=== PATIENT | male | born 1970 | race Caucasian/White ===

== ENCOUNTER 2019-02-06 10:52 | Emergency (ER) | payer MEDICARE, SELFPAY ==
[2019-02-06 10:53] VITALS: BP 133/88; PULSE 75; RESP 17; TEMP 36.5; O2SAT 94; BMI 34.1
--- NOTE | 2019-02-06 11:43 | CT_ITS ---
STUDY: CT ABDOMEN AND PELVIS WITH CONTRAST REASON FOR EXAM: Male, 48 years old. Abdominal pain. Diarrhea. RADIATION DOSAGE (If Supplied By Facility): CTDIvol = ( 17.08 ) mGy, DLP = ( 1406.48 ) mGycm TECHNIQUE: Transaxial images were obtained from the dome of the diaphragm to the symphysis pubis without oral contrast. 100 IV Isovue 300 was administered. Sagittal and coronal images were reconstructed. Individualized dose optimization techniques were used for this CT. COMPARISON: None. FINDINGS: Mild degree of increased markings at the lung bases. This may represent either bibasilar linear atelectasis and/or scarring. The visualized portions of the heart are within normal limits. There is decreased attenuation of the liver consistent with steatosis. Normal gallbladder and extrahepatic biliary system. Normal spleen. Normal pancreas. Normal bilateral adrenal glands. Normal right kidney. Normal left kidney. Normal visualized stomach. Normal small intestine. There are scattered colonic diverticula consistent with diverticulosis. The appendix is visualized and appears normal. Normal abdominal aorta. Normal inferior vena cava. Normal retroperitoneum. Normal urinary bladder. There is a small umbilical hernia containing fat. Mild degree of loss of right superior endplates of the T10, T11 and T12 vertebrae. Disc space narrowing at the L5-S1 level. CT/Abdomen/Pelvis W IV Cont ONLY IMPRESSION: Scattered sigmoid diverticula. Fatty infiltration of the liver. Electronically Signed: Srini Villela, at 12:51 EDT , Service support ,
[2019-02-06 12:03] LABS: Absolute Lymphocyte Count 2.47 X10^3/uL (0.83-4.51); Absolute Neutrophil Count 3.5 X10^3/uL (2.0-7.7); Basophil# 0.04 X10^3/uL; Basophil% 0.6 % (0-1); Eosinophil# 0.21 X10^3/uL; Eosinophils% 3.1 % (0-5); Hematocrit 45.1 % (40-54); Hemoglobin 14.9 g/dL (13.0-16.5); Lymphocyte # 2.47 X10^3/ul (4.0); Lymphocyte % 36.3 % (19-41); Mean Corpuscular Volume 78.7 fL (80-94); Mean Platelet Vol. 9.8 fl (6.2-12.0); Monocyte# 0.51 X10^3/uL; Monocyte% 7.5 % (0-10); NRBC Flagged by Analyzer 0 % (0-5); Neutrophil # 3.54 X10^3/uL (2.7-7.7); Neutrophil % 52.1 % (47-70); Platelet Count 185 K/mm3 (150-450); RBC Distribution Width SD 42.5 fl (35.1-43.9); Red Blood Count 5.73 M/mm3 (4.6-6.2); White Blood Count 6.8 K/mm3 (4.4-11.0)
[2019-02-06] MEDS: Ondansetron 4 MG/2 ML Vial IV (12:05)
[2019-02-06] MEDS: 0.9% Normal Saline 1,000 ML 1000 ML IV (12:06)
[2019-02-06 12:15] LABS: AST(SGOT) 15 U/L (15-37); Alanine Aminotransfer ALT/SGPT 27 U/L (16-61); Albumin, Serum 3.8 g/dL (3.2-5.0); Alkaline Phosphatase 118 U/L (45-117); Anion Gap 3 (5-15); BUN 14 mg/dL (7-18); BUN/Creat Ratio 15.6 RATIO (10-20); Bilirubin, Direct 0.07 mg/dL (0.00-0.30); Calcium,Total 8.8 mg/dL (8.5-10.1); Chloride 106 mmol/L (98-107); EST Glomerular Filtration Rate 95 mL/min (>60); Est Glom Filt Rate - Afr Amer 115 mL/min (>60); Estimated Creatinine Clearance 107.78 ml/min; Globulin 3.4 g/dL (2.2-4.2); Glucose 90 mg/dL (74-106); Lipase 228 U/L (73-393); Potassium 4.6 mmol/L (3.5-5.1); Protein, Total 7.2 g/dL (6.4-8.2); Sodium Level 139 mmol/L (136-145)
[2019-02-06] MEDS: 0.9% Normal Saline 1,000 ML 125 ML IV (12:51)
[2019-02-06 13:31] LABS: Mucous, Urine 0 SEEN /hpf (<or=2+)
[2019-02-06 13:34] LABS: Color, Urine Yellow (Yellow); Glucose, Dipstick Normal (Normal); Ketone-Dipstick 5 mg/dl (Negative); Leukocyte Esterase-Dipstick 500 /ul (Negative); Nitrite-Dipstick Negative (Negative); Occult Blood-Urine 50 /ul (Negative); Protein-Dipstick 15 mg/dl (Negative); Urine Bilirubin Dipstick Negative (Negative); Urine Clarity Clear (Clear); Urine Urobilinogen Normal (Normal)
[2019-02-06 13:56] LABS: Bacteria RARE /hpf (None Seen); Red Blood Cells-Urine 0-5 SEEN /hpf (0-5); Squamous Epithelial Cells - UA 0-5 SEEN /hpf (0-5); White Blood Cells 0-5 SEEN /hpf (0-5)
--- NOTE | 2019-02-06 13:59 | ED.DCSUM_ITS ---
- ER Visit Summary Date of Service: 02/06/19 Chief Complaint: Diarrhea History of Present Illness: The patient is a 48 M who presents with 5 days of intermittent epigastric cramping as well as diarrhea. Describes the diarrhea is yellow and burning. He also notes the occasional blood in the stool. He denies any recent travel bad food exposures or exposure to farm animals. He states is been very nauseated has not been able to keep much fluids down. He started to feel weak and dehydrated. He has a history of seizure disorder and somatoform disorder. Physical Examination: Afebrile vital signs stable Gen: Well-nourished well-developed Head: Normocephalic atraumatic Eyes: Perrl EOMI ENT: TMs clear no rhinorrhea moist mucous membranes Neck: Supple no lymphadenopathy no JVD nontender CVS: Regular rate rhythm no murmurs normal S1-S2 Respiratory: No distress clear to auscultation bilaterally chest nontender Abdomen: Soft nontender nondistended normal bowel sounds no masses Back: Nontender Extremity: Nontender no edema Skin: Normal color no rash Neuro: alert orientated ?3 CN II-XII intact normal strength sensation Psych: Normal affect normal mood Test Results: CBC CMP is normal. Urinalysis normal. He is unable to produce a stool specimen. CT of the pelvis was negative. Emergency Department Course and Treatment: Patient received IV fluids and Zofran. He does feel better after IV hydration. He is appropriate for discharge and write for Bentyl in addition to Zofran Impression: 1. Gastroenteritis This note was generated with [employer] dictation software. It may contain incorrect words, spelling, and punctuation that were not noted in review of the chart prior to signing ED Disposition - Plan for ED Patient: Disposition: Home or Assisted Living Instructions: GASTROENTERITIS, Viral (4y-Adult) Prescriptions: Dicyclomine HCl [Bentyl] 20 mg PO TIDAC #20 cap Prescription Printed Ondansetron [Zofran Odt] 4 mg PO Q6H PRN PRN #10 tab PRN Reason: Nausea Prescription Printed Referrals: Watson Chapman Chi, MD [Primary Care Provider] - As Needed
[2019-02-06 14:16] VITALS: RESP 18
== END 2019-02-06 14:17 | disposition home or self-care (01) ==
PROVIDERS: Emergency Provider Emergency Medicine; Family Provider Family Medicine Geriatric Medicine; PCP Family Medicine Geriatric Medicine
DX: K52.9 Noninfective gastroenteritis and colitis, unspecified (principal); G40.909 Epilepsy, unspecified, not intractable, without status epilepticus; Z79.899 Other long term (current) drug therapy
CPT/HCPCS: 74177; 80048; 80076; 81001; 83690; 85025; 96361; 96374; 99283; J7030; Q9967; A4216; J2405

== ENCOUNTER → 2019-02-11 | Outpatient (CLI) | payer MEDICARE, SELFPAY ==
[2019-02-06 10:53] VITALS: BMI 34.1
[2019-02-11 16:34] LABS: Absolute Lymphocyte Count 2.47 X10^3/uL (0.83-4.51); Absolute Neutrophil Count 3.2 X10^3/uL (2.0-7.7); Basophil# 0.04 X10^3/uL; Basophil% 0.6 % (0-1); Eosinophil# 0.15 X10^3/uL; Eosinophils% 2.4 % (0-5); Hematocrit 42.6 % (40-54); Hemoglobin 14.2 g/dL (13.0-16.5); Lymphocyte # 2.47 X10^3/ul (4.0); Lymphocyte % 39.8 % (19-41); Mean Corp Hgb Conc 33.3 g/dL (32-36); Mean Corpuscular Hgb 25.6 pg (27.0-32.0); Mean Corpuscular Volume 76.8 fL (80-94); Mean Platelet Vol. 9.9 fl (6.2-12.0); Monocyte# 0.33 X10^3/uL; Monocyte% 5.3 % (0-10); NRBC Flagged by Analyzer 0 % (0-5); Neutrophil # 3.17 X10^3/uL (2.7-7.7); Neutrophil % 51.3 % (47-70); Platelet Count 160 K/mm3 (150-450); RBC Distribution Width CV 14.8 % (11.6-14.6); RBC Distribution Width SD 40.7 fl (35.1-43.9); Red Blood Count 5.55 M/mm3 (4.6-6.2); White Blood Count 6.2 K/mm3 (4.4-11.0)
[2019-02-11 17:03] LABS: ALB/GLOB Ratio 1.1 RATIO (0.9-2.4); AST(SGOT) 15 U/L (15-37); Alanine Aminotransfer ALT/SGPT 27 U/L (16-61); Albumin, Serum 3.6 g/dL (3.2-5.0); Alkaline Phosphatase 103 U/L (45-117); Anion Gap 9 (5-15); BUN 15 mg/dL (7-18); BUN/Creat Ratio 16.3 RATIO (10-20); Calcium,Total 8.6 mg/dL (8.5-10.1); Chloride 107 mmol/L (98-107); Creatinine, Serum 0.92 mg/dL (0.70-1.30); EST Glomerular Filtration Rate 93 mL/min (>60); Est Glom Filt Rate - Afr Amer 112 mL/min (>60); Globulin 3.3 g/dL (2.2-4.2); Glucose 108 mg/dL (74-106); Potassium 4.1 mmol/L (3.5-5.1); Protein, Total 6.9 g/dL (6.4-8.2); Sodium Level 140 mmol/L (136-145); Thyroid Stim Hormone (TSH) 1.61 uIU/mL (0.358-3.74)
== END | disposition home or self-care (01) ==
LOC: POLAB3 14:24
PROVIDERS: Family Provider Family Medicine Geriatric Medicine; PCP Family Medicine Geriatric Medicine; Visit Provider Family Medicine Geriatric Medicine
DX: R53.83 Other fatigue (principal)
CPT/HCPCS: 36415; 80053; 84443; 85025

== ENCOUNTER 2020-07-28 15:50 | Emergency (ER) | payer MEDICARE, SELFPAY ==
[2020-07-28 15:51] VITALS: BP 163/97; PULSE 96; RESP 17; TEMP 36.7; O2SAT 92; BMI 33.0
--- NOTE | 2020-07-28 16:26 | ED.VISSUMM ---
- ER Visit Summary Date of Service: 07/28/20 Chief Complaint: Left chest pain History of Present Illness: The patient is a 49 M who presents with left chest wall pain that began after a fall 3 days ago. Patient states she fell down some steps. Patient denies any loss of consciousness at that time. Patient is unsure if he hit his head. Patient states that today he was doing some lifting when he felt pain in the left side of his chest where he fell. Patient states he did feel a pop. Patient states the pain is better when he remains in certain positions. Patient states the pain is worse whenever he takes a deep breath or moves. Patient describes the pain as sharp. Patient denies any shortness of breath other than the pain from taking a deep breath. Patient denies any nausea or vomiting. Physical Examination: Vital signs are stable. Patient is afebrile. Patient is in no acute distress. Neck is supple. Trachea is midline. There is no JVD. Heart was regular rate and rhythm. Lungs are clear and equal bilaterally. There is adequate respiratory effort. Abdomen is soft. Bowel sounds are normal. There is no tenderness. Cranial nerves II through XII are intact. There are no focal motor or sensory deficits noted. There is tenderness and ecchymosis over the left lateral and posterior ribs over the third fourth and fifth rib area. There is no bony crepitance or step-off. There is no subcutaneous emphysema noted. Test Results: X-rays of the left ribs were obtained. There are 5 views. On my interpretation, there is no acute fracture. There is no pneumothorax. There is no acute cardiopulmonary process. Radiologist also interpreted the x-rays and agrees. Emergency Department Course and Treatment: Patient was given a dose of [place] here. Patient was advised of his findings. Patient was given a prescription for a short course of [place]. Patient was instructed to take 10-15 deep breaths every hour while awake to prevent atelectasis and pneumonia. Patient was instructed to follow-up with his primary care physician in 5 to 7 days. Patient understood and was agreeable with the plan. All questions were answered. Disposition: Discharge home Impression: Left chest wall contusion This note was generated with [employer] dictation software. It may contain incorrect words, spelling, and punctuation that were not noted in review of the chart prior to signing ED Disposition - Plan for ED Patient: Disposition: Home or Assisted Living Diagnosis: Contusion of left chest wall Instructions: ED Chest Wall Contusion Prescriptions: Hydrocodone Bitart/Apap 5-325 [[place] 5MG-325MG] 1 tab PO Q6H PRN PRN 3 Days #10 tab PRN Reason: Pain Prescription Printed Referrals: Watson Chapman Chi, MD [Primary Care Provider] - 5-7 Days
[2020-07-28] MEDS: HYDROcodone Bitartrate/Apap 5/325 Tablet PO (16:29)
--- NOTE | 2020-07-28 16:35 | RAD_ITS ---
STUDY: X-RAY - UNILATERAL RIBS ( LEFT ) WITH CHEST REASON FOR EXAM: Male, 49 years old. Fall. TECHNIQUE - RIBS: view(s) of the ribs. TECHNIQUE - CHEST: Single PA view of the chest. COMPARISON: Chest, 08/07/2014. FINDINGS - RIBS: Normal visualized ribs without a demonstrated fracture. FINDINGS - CHEST: There is a limited inspiratory effort. There is no new mass or infiltrate in the lungs. There is no pneumothorax. There is no demonstrated pleural abnormality. Normal size heart. Normal mediastinum and jameson. Normal visualized pulmonary arteries. There is atherosclerotic calcification of the aortic arch with tortuosity. There are diffuse degenerative changes of the visualized thoracic spine. There are stable surgical changes on the left shoulder. There is no demonstrated abnormality of the visualized soft tissue structures of the upper abdomen. RAD/Ribs Uni Min 3V w/PA Chest IMPRESSION: RIBS: Normal x-ray examination of the ribs. CHEST: No acute cardiopulmonary disease or major interval change. Electronically Signed: Nomi Matias DO at 16:55 EST Tel [phone], Service support ,
[2020-07-28 17:22] VITALS: PULSE 87; RESP 18; O2SAT 98
== END 2020-07-28 17:22 | disposition home or self-care (01) ==
PROVIDERS: Emergency Provider Emergency Medicine; PCP Family Medicine Geriatric Medicine
DX: S20.212A Contusion of left front wall of thorax, initial encounter (principal); R56.9 Unspecified convulsions; Z79.899 Other long term (current) drug therapy; W10.9XXA Fall (on) (from) unspecified stairs and steps, initial encounter; Y93.89 Activity, other specified; Y92.89 Other specified places as the place of occurrence of the external cause; Y99.8 Other external cause status
CPT/HCPCS: 71101; 99283

== ENCOUNTER → 2020-08-03 11:07 | Outpatient (CLI) | payer MEDICARE, SELFPAY ==
[2020-07-28 15:51] VITALS: BMI 33.0
[2020-08-03 12:30] LABS: Absolute Lymphocyte Count 1.78 X10^3/uL (0.83-4.51); Absolute Neutrophil Count 3.8 X10^3/uL (2.0-7.7); Basophil# 0.04 X10^3/uL; Basophil% 0.6 % (0-1); Eosinophil# 0.11 X10^3/uL; Eosinophils% 1.7 % (0-5); Hematocrit 46.7 % (40-54); Hemoglobin 15.3 g/dL (13.0-16.5); Lymphocyte # 1.78 X10^3/ul (4.0); Lymphocyte % 28.3 % (19-41); Mean Corp Hgb Conc 32.8 g/dL (32-36); Mean Corpuscular Hgb 27.7 pg (27.0-32.0); Mean Corpuscular Volume 84.6 fL (80-94); Mean Platelet Vol. 9.6 fl (6.2-12.0); Monocyte# 0.42 X10^3/uL; Monocyte% 6.7 % (0-10); NRBC Flagged by Analyzer 0 % (0-5); Neutrophil # 3.84 X10^3/uL (2.7-7.7); Platelet Count 177 K/mm3 (150-450); RBC Distribution Width CV 12.9 % (11.6-14.6); RBC Distribution Width SD 39.8 fl (35.1-43.9); Red Blood Count 5.52 M/mm3 (4.6-6.2); White Blood Count 6.3 K/mm3 (4.4-11.0)
[2020-08-03 12:46] LABS: ALB/GLOB Ratio 1.2 RATIO (0.9-2.4); AST(SGOT) 10 U/L (15-37); Alanine Aminotransfer ALT/SGPT 30 U/L (16-61); Albumin, Serum 3.8 g/dL (3.2-5.0); Alkaline Phosphatase 118 U/L (45-117); Anion Gap 6 (5-15); BUN 19 mg/dL (7-18); BUN/Creat Ratio 20.9 RATIO (10-20); Calcium,Total 8.8 mg/dL (8.5-10.1); Chloride 107 mmol/L (98-107); Cholesterol 183 mg/dL (200); Creatinine, Serum 0.91 mg/dL (0.70-1.30); EST Glomerular Filtration Rate 93 mL/min (>60); Est Glom Filt Rate - Afr Amer 113 mL/min (>60); Globulin 3.3 g/dL (2.2-4.2); Glucose 95 mg/dL (74-106); High Density Lipoprotein 52 mg/dL; Potassium 4.4 mmol/L (3.5-5.1); Protein, Total 7.1 g/dL (6.4-8.2); Sodium Level 138 mmol/L (136-145); Thyroid Stim Hormone (TSH) 3.22 uIU/mL (0.358-3.74); Triglycerides 290 mg/dL; Very Low Density Lipoprotein 58 mg/dL (5-40)
== END ==
LOC: POLAB3 11:08
PROVIDERS: PCP Family Medicine Geriatric Medicine; Visit Provider Family Medicine Geriatric Medicine
DX: E78.5 Hyperlipidemia, unspecified (principal); I10 Essential (primary) hypertension
CPT/HCPCS: 36415; 80053; 80061; 84443; 85025

== ENCOUNTER → 2020-10-01 09:47 | Outpatient (CLI) | payer MEDICARE, SELFPAY ==
--- NOTE | 2020-10-01 09:50 | RAD_ITS ---
STUDY: X-RAY - LEFT KNEE REASON FOR EXAM: Left knee joint pain, no specific injury. TECHNIQUE: 4 view(s) of the knee. COMPARISON: Radiographs 01/13/2014. FINDINGS: Normal visualized distal femur. Normal visualized proximal tibia and fibula. Normal proximal tibiofibular articulation. There is moderate narrowing of the medial femorotibial compartment, mildly increased since the prior study. Normal lateral femorotibial compartment. Normal patellofemoral articulation. The soft tissue structures are unremarkable. RAD/Knee 4 or More Views IMPRESSION: Arthrosis of the medial femorotibial compartment. Electronically Signed: Lit Valencia MD at 11:08 EDT Tel , Service support ,
== END ==
LOC: RAD 09:49
PROVIDERS: PCP Family Medicine Geriatric Medicine; Referring Provider Family Medicine Geriatric Medicine; Visit Provider Family Medicine Geriatric Medicine
DX: M25.562 Pain in left knee (principal)
CPT/HCPCS: 73564

== ENCOUNTER → 2020-10-11 06:35 | Outpatient (CLI) | payer MEDICARE, SELFPAY ==
--- NOTE | 2020-10-11 06:50 | MRI_ITS ---
STUDY: MRI BRAIN WITHOUT CONTRAST REASON FOR EXAM: Male, 49 years old. L HEMIPARASIS TECHNIQUE: Standardized multiplanar fat and water weighted pulse sequences were obtained. COMPARISON: 09/12/2014 FINDINGS: Normal size of the ventricles and extra-axial spaces for the patient''s age. Normal white matter tracts of the supratentorial brain. There is no evidence for recent intracranial ischemia or other cause of cytotoxic edema on diffusion weighted imaging (DWI). Normal T2* images of the brain without demonstrated susceptibility artifact. There is no demonstrated hemosiderin stain. Normal bilateral basal ganglia. Normal thalami. There is no extra-axial fluid accumulation. Normal flow voids within the major intracranial circulation suggesting patency by spin echo criteria. Normal sella turcica, pituitary gland, infundibular stalk, optic chiasm and hypothalamus. Normal tectal plate and pineal gland. Normal midbrain, derrick and medulla. Normal cerebellum. Normal basal cisterns. Normal bilateral temporal bones. Normal bilateral internal auditory canals. No demonstrated orbital abnormality, within the constraints of a routine brain study. Normal visualized paranasal sinuses. Normal calvarium and skull base. Normal visualized soft tissue structures. Normal visualized upper cervical spine. MRI/Brain without Contrast IMPRESSION: Normal unenhanced MRI of the brain. Electronically Signed: Abilio Meyers MD at 11:57 EDT Tel , Service support ,
--- NOTE | 2020-10-11 06:51 | MRI_ITS ---
STUDY: MRI CERVICAL SPINE WITHOUT CONTRAST REASON FOR EXAM: Male, 49 years old. L HEMIPARASIS TECHNIQUE: Standardized fat and water weighted pulse sequences were obtained in the sagittal and axial planes. COMPARISON: None FINDINGS: Patient motion. Please see dedicated brain MRI. No abnormal cord signal. Symmetric vascular flow voids. Normal foramen magnum. Normal craniovertebral junction. Normal anterior atlantoaxial articulation. Normal odontoid process. Paraspinal muscle atrophy. No acute soft tissue abnormality. Multilevel mild facet joint arthrosis. No spondylolisthesis. C2-3: Normal endplates. Normal disc height, signal and morphology. Normal central canal and intervertebral neural foramina. C3-4: Mild endplate spondylosis and Schmorl''s node. Shallow disc bulge. Normal central canal. Moderate left neural foraminal narrowing. Normal right neural foramina. C4-5: Minimal endplate spondylosis. Shallow disc bulge. Normal central canal. Moderate bilateral neural foraminal narrowing. C5-6: Minimal endplate spondylosis. Shallow disc bulge. Normal central canal. Mild/moderate bilateral neural foraminal narrowing. C6-7: Mild endplate spondylosis. Disc/osteophyte complex. Mild central canal narrowing. Moderate/severe bilateral neural foraminal narrowing. C7-T1: Normal endplates. Normal disc height, signal and morphology. Normal central canal and intervertebral neural foramina. MRI/Spine Cervical (Routine) IMPRESSION: No abnormal cord signal Multilevel intervertebral disc disease with mild central canal narrowing at C6-7 Multilevel neural foraminal narrowing most severe at C3-4 through C6-7 Multilevel mild osseous degenerative features Electronically Signed: Alin Moreno DO at 9:34 EDT Tel , Service support ,
== END ==
PROVIDERS: PCP Family Medicine Geriatric Medicine; Referring Provider Family Medicine Geriatric Medicine; Visit Provider Family Medicine Geriatric Medicine
DX: G81.90 Hemiplegia, unspecified affecting unspecified side (principal); S06.9X0S Unspecified intracranial injury without loss of consciousness, sequela
CPT/HCPCS: 70551; 72141

== ENCOUNTER 2021-02-08 09:28 | Emergency (ER) | payer MEDICARE, SELFPAY ==
[2021-02-08 09:28] VITALS: BP 166/75; PULSE 75; RESP 16; TEMP 36.4; O2SAT 97; BMI 32.9
--- NOTE | 2021-02-08 10:01 | RAD_ITS ---
STUDY: X-RAY - LEFT KNEE REASON FOR EXAM: Male, 50 years old. Injury TECHNIQUE: 4 view(s) of the knee. COMPARISON: None. FINDINGS: Normal visualized distal femur. Normal visualized proximal tibia and fibula. Normal proximal tibiofibular articulation. Mild degree of joint space narrowing involving the medial compartment of the knee joint. Normal lateral femorotibial compartment. Normal patellofemoral articulation. The soft tissue structures are unremarkable. RAD/Knee 4 or More Views IMPRESSION: Mild degree of joint space narrowing involving the medial compartment of the knee joint. Electronically Signed: Srini Villela MD at 11:08 EDT , Service support ,
--- NOTE | 2021-02-08 10:02 | ED.VIS.LOWEX ---
HPI History of Present Illness Chief Complaint: Lower Extremity Injury Informant: patient Onset/Context/Timing Onset: Weeks Current Severity: Severe Maximum Severity: Severe Narrative Narrative: Patient present secondary to left knee pain. He states approximately 7 weeks ago he was helping a friend laying chelly. After working on his knees for several days he developed left knee pain. Been waxing and waning for the last 6 weeks. He was seen by his PCP yesterday who did a steroid injection. He states after this it did seem to be improved. Last evening he slipped and his knee twisted. He had now has increased pain with pain shooting down his leg. He denies back or hip pain. No prior knee surgeries. [facility] Medical History Hx of arterial ischemic stroke Seizure disorder Home Medications citalopram [Celexa] 20 mg PO QHS 01/13/14 [History Last Taken 08/08/15] phenytoin sodium extended 200 mg PO BREAKFAST #60 03/08/14 [Rx Last Taken 08/08/15] phenytoin sodium extended 300 mg PO QHS 03/26/14 [History Last Taken 08/07/15] divalproex [Depakote] 2,000 mg PO BID 05/05/14 [History Last Taken 08/08/15] cyanocobalamin (vitamin B-12) 500 mcg PO DAILY@0800 07/28/20 [History Last Taken Unknown] baclofen 10 mg PO QHS 02/08/21 [History Last Taken Unknown] hydrocodone-acetaminophen 1 tab PO Q6H PRN 3 Days #10 tab 02/08/21 [Rx Last Taken Unknown] naproxen 500 mg PO BID 02/08/21 [History Last Taken Unknown] pantoprazole 40 mg PO DAILY 02/08/21 [History Last Taken Unknown] prednisone 10 mg PO DAILY 02/08/21 [History Last Taken Unknown] Allergy/AdvReac Type Severity Reaction Status Date / Time diazepam [From Valium] Allergy Other Verified 02/08/21 09:31 Penicillins AdvReac Rash Verified 02/08/21 09:31 Surgical History Hx of cornea transplant Social History Smoking Status: Never smoker ROS ROS ED Constitutional Constitutional ED: Denies chills or fever(s) Eyes Eyes: Denies change in vision ENT ENT ED: Denies sore throat Cardiovascular Cardiovascular: Denies chest pain Respiratory/Chest Respiratory/Chest: Denies cough or dyspnea Gastrointestinal Gastrointestinal: Denies abdominal pain, diarrhea, nausea or vomiting Genitourinary Genitourinary ED: Denies dysuria Musculoskeletal Musculoskeletal: Reports arthralgias; Denies back pain Integumentary Denies rash Neurologic Neurologic: Denies headache(s), paresthesias or weakness Psychiatric Psychiatric: Denies anxiety or depression Allergic/Immunologic Allergic/Immunologic ED: Denies urticaria EXAM Physical Exam Const Vital Signs: 02/08/21 09:28 Temperature 97.6 F L Temperature Source Oral Pulse Rate 75 Respiratory Rate 16 Blood Pressure 166/75 H Blood Pressure Mean 105 Pulse Ox 97 Oxygen Delivery Method Room Air Positive well nourished and well developed General Appearance ED: well developed HEENT Reports normocephalic and head/scalp atraumatic Eyes PERRL and EOMs intact bilaterally Neck supple Chest Wall inspection of chest normal and palpation of chest normal Resp normal respiratory effort and clear to auscultation bilaterally Cardio regular rate and regular rhythm GI normal to inspection, nondistended, normoactive bowel sounds Palpation: soft Extremity normal to inspection Extremity Narrative: No obvious joint effusion. Tenderness along the medial aspect of the left knee. Ligaments tight on testing. Strong distal pulses. No calf tenderness or edema. Neuro oriented x3 Sensorium / Orientation: alert Psych mental status grossly normal Skin no rashes or lesions noted MDM MDM MDM Narrative Medical decision making narrative: Patient is given [place] for pain. Left knee x-rays obtained. Treatment and Re-Evaluation Comments:: Left knee x-ray per my interpretation reveals no evidence of acute fracture. Collin wrap will be applied. Patient was placed on crutches and may weight-bear as tolerated. Patient's went up to the PCPs office. They are awaiting insurance preauthorization to schedule an MRI. Patient be given prescription for [place] in addition to the prednisone and Naprosyn he was given yesterday. Discharge Plan Triage Chief Complaint: Lower Extremity Injury ED Provider: Suyapa John Dx/Rx/DC Orders Clinical Impression: Knee sprain Instructions: ED Knee Sprain Prescriptions: New hydrocodone-acetaminophen 5-325 mg tablet 1 tab PO Q6H PRN (Reason: pain) 3 Days Qty: 10 RF: 0 No Action citalopram [Celexa] 10 MG tablet 20 mg PO QHS RF: 0 phenytoin sodium extended 100 MG capsule 200 mg PO BREAKFAST Qty: 60 RF: 0 phenytoin sodium extended 100 MG capsule 300 mg PO QHS RF: 0 divalproex [Depakote] 500 MG tablet,delayed release (DR/EC) 2,000 mg PO BID RF: 0 cyanocobalamin (vitamin B-12) 500 MCG tablet 500 mcg PO DAILY@0800 RF: 0 prednisone 10 mg Tablets,Dose Pack 10 mg PO DAILY RF: 0 baclofen 10 mg Tablet 10 mg PO QHS RF: 0 pantoprazole 40 mg Tablet,Delayed Release (Dr/Ec) 40 mg PO DAILY RF: 0 naproxen 500 mg Tablet 500 mg PO BID RF: 0 Primary Care Provider: Watson Chapman Chi Referrals: Watson Chapman Chi, MD [Primary Care Provider] - 1 Week Disposition Disposition: Home, Self Care
[2021-02-08] MEDS: HYDROcodone Bitartrate/Apap 5/325 Tablet PO (10:05)
== END 2021-02-08 10:56 | disposition home or self-care (01) ==
PROVIDERS: Emergency Provider Emergency Medicine; PCP Family Medicine Geriatric Medicine
DX: S83.92XA Sprain of unspecified site of left knee, initial encounter (principal); Z86.73 Personal history of transient ischemic attack (TIA), and cerebral infarction without residual deficits; Z79.899 Other long term (current) drug therapy; Z79.52 Long term (current) use of systemic steroids; X58.XXXA Exposure to other specified factors, initial encounter
CPT/HCPCS: 73564; 99284

== ENCOUNTER → 2021-02-19 07:16 | Outpatient (CLI) | payer MEDICARE, SELFPAY ==
--- NOTE | 2021-02-19 07:32 | MRI_ITS ---
STUDY: MRI LEFT KNEE REASON FOR EXAM: Male, 50 years old. KNEE PAIN distal and medial to patella TECHNIQUE: Standardized fat and water weighted pulse sequences were obtained in all 3 orthogonal planes. COMPARISON: Left knee x-ray dated February 08, 2021 FINDINGS: A moderate size radial tear of the free edge of the body of the medial meniscus is present. There is diffuse thinning and signal abnormality throughout the posterior horn of the medial meniscus. A small horizontal undersurface tear is present in the middle one third aspect of the posterior horn of medial meniscus. The anterior horn is intact. There is diffuse, greater than 50% thickness articular cartilage loss of the medial femorotibial compartment. Normal medial femoral condyle and tibial plateau. Normal medial collateral ligamentous complex (MCL). Normal distal semimembranosus, gracilis and semitendinosus tendons. Normal lateral meniscus. There is diffuse, less than 50% thickness articular cartilage loss of the lateral femorotibial compartment. Normal lateral femoral condyle and tibial plateau. Normal proximal tibiofibular articulation. Normal lateral collateral (fibular) ligament. Normal popliteus tendon. Normal biceps femoris tendon. Normal anterior cruciate ligament (ACL). Normal posterior cruciate ligament (PCL). Normal congruent patellofemoral articulation. There is diffuse, greater than 50% thickness articular cartilage loss of the patellofemoral compartment. Normal medial and lateral patellar retinaculum. Normal quadriceps tendon. Normal patellar tendon. Normal Hoffa''s fat pad. A tiny joint effusion is present. Low signal fibrosis is seen in the anterior medial aspect of the subcutaneous tissue with a small focal capsular defect suggesting prior surgical intervention or direct trauma to this region. Mild anterior subcutaneous edema is present. MRI/Lower Ext Joint Only (Routine) IMPRESSION: 1. Moderate size radial tear of the medial meniscus 2. Small horizontal tear of the posterior horn of medial meniscus 3. A tiny joint effusion is present. Low signal fibrosis is seen in the anterior medial aspect of the subcutaneous tissue with a small focal capsular defect suggesting prior surgical intervention or direct trauma to this region. Electronically Signed: Matt Carmen MD at 23:17 EDT , Service support ,
== END ==
PROVIDERS: PCP Family Medicine; Referring Provider Family Medicine Geriatric Medicine; Visit Provider Family Medicine Geriatric Medicine
DX: M25.562 Pain in left knee (principal)
CPT/HCPCS: 73721

== ENCOUNTER → 2021-04-11 12:06 | Outpatient (CLI) | payer MEDICARE, SELFPAY ==
[2021-04-11 12:42] LABS: Absolute Lymphocyte Count 1.85 X10^3/uL (0.83-4.51); Absolute Neutrophil Count 2.9 X10^3/uL (2.0-7.7); Basophil# 0.03 X10^3/uL; Basophil% 0.6 % (0-1); Eosinophil# 0.07 X10^3/uL; Eosinophils% 1.3 % (0-5); Hematocrit 45.2 % (40-54); Lymphocyte # 1.85 X10^3/ul (0.83-4.51); Lymphocyte % 35.2 % (19-41); Mean Corp Hgb Conc 33.2 g/dL (32-36); Mean Corpuscular Hgb 29.5 pg (27.0-32.0); Mean Corpuscular Volume 88.8 fL (80-94); Mean Platelet Vol. 10.7 fl (6.2-12.0); Monocyte# 0.34 X10^3/uL; Monocyte% 6.5 % (0-10); NRBC Flagged by Analyzer 0 % (0-5); Neutrophil # 2.91 X10^3/uL (2.7-7.7); Neutrophil % 55.4 % (47-70); Platelet Count 174 K/mm3 (150-450); RBC Distribution Width CV 13.1 % (11.6-14.6); RBC Distribution Width SD 42.5 fl (35.1-43.9); Red Blood Count 5.09 M/mm3 (4.6-6.2); White Blood Count 5.3 K/mm3 (4.4-11.0)
[2021-04-11 13:05] LABS: AST(SGOT) 8 U/L (15-37); Alanine Aminotransfer ALT/SGPT 20 U/L (16-61); Albumin, Serum 3.3 g/dL (3.2-5.0); Alkaline Phosphatase 80 U/L (45-117); Anion Gap 7 (5-15); BUN 12 mg/dL (7-18); BUN/Creat Ratio 13.9 RATIO (10-20); Calcium,Total 8.5 mg/dL (8.5-10.1); Chloride 110 mmol/L (98-107); Cholesterol 163 mg/dL (200); Creatinine, Serum 0.86 mg/dL (0.70-1.30); EST Glomerular Filtration Rate 99 mL/min (>60); Est Glom Filt Rate - Afr Amer 119 mL/min (>60); Globulin 3.2 g/dL (2.2-4.2); Glucose 108 mg/dL (74-106); High Density Lipoprotein 43 mg/dL; Potassium 4.6 mmol/L (3.5-5.1); Protein, Total 6.5 g/dL (6.4-8.2); Sodium Level 142 mmol/L (136-145); Thyroid Stim Hormone (TSH) 1.93 uIU/mL (0.358-3.74); Triglycerides 246 mg/dL; Very Low Density Lipoprotein 49 mg/dL (5-40)
== END ==
LOC: POLAB3 12:07
PROVIDERS: PCP Family Medicine Geriatric Medicine; Visit Provider Family Medicine Geriatric Medicine
DX: E78.5 Hyperlipidemia, unspecified (principal); I10 Essential (primary) hypertension
CPT/HCPCS: 36415; 80053; 80061; 84443; 85025

== ENCOUNTER → 2021-05-09 10:34 | Outpatient (CLI) | payer MEDICARE, SELFPAY ==
[2021-05-09 12:46] LABS: Anion Gap 7 (5-15); BUN 13 mg/dL (7-18); BUN/Creat Ratio 15.1 RATIO (10-20); Calcium,Total 9.1 mg/dL (8.5-10.1); Chloride 104 mmol/L (98-107); Creatinine, Serum 0.86 mg/dL (0.70-1.30); EST Glomerular Filtration Rate 99 mL/min (>60); Est Glom Filt Rate - Afr Amer 119 mL/min (>60); Glucose 91 mg/dL (74-106); Potassium 4.9 mmol/L (3.5-5.1); Sodium Level 141 mmol/L (136-145)
[2021-05-09 12:47] LABS: Absolute Lymphocyte Count 2.43 X10^3/uL (0.83-4.51); Basophil# 0.03 X10^3/uL; Basophil% 0.5 % (0-1); Eosinophil# 0.18 X10^3/uL; Hematocrit 47.5 % (40-54); Hemoglobin 15.7 g/dL (13.0-16.5); Lymphocyte # 2.43 X10^3/ul (0.83-4.51); Lymphocyte % 40.1 % (19-41); Mean Corp Hgb Conc 33.1 g/dL (32-36); Mean Corpuscular Hgb 28.5 pg (27.0-32.0); Mean Corpuscular Volume 86.2 fL (80-94); Monocyte# 0.43 X10^3/uL; Monocyte% 7.1 % (0-10); NRBC Flagged by Analyzer 0 % (0-5); Neutrophil # 2.95 X10^3/uL (2.7-7.7); Neutrophil % 48.6 % (47-70); Platelet Count 184 K/mm3 (150-450); RBC Distribution Width CV 12.9 % (11.6-14.6); RBC Distribution Width SD 39.8 fl (35.1-43.9); Red Blood Count 5.51 M/mm3 (4.6-6.2); White Blood Count 6.1 K/mm3 (4.4-11.0)
[2021-05-09 12:50] LABS: Prothrombin Time (Protime)PT. 12.3 SECONDS (11.7-14.9)
== END ==
LOC: POLAB3 10:35
PROVIDERS: PCP Family Medicine Geriatric Medicine; Visit Provider Family Medicine Geriatric Medicine
DX: Z01.818 Encounter for other preprocedural examination (principal)
CPT/HCPCS: 36415; 80048; 85025; 85610

== ENCOUNTER 2021-05-11 07:58 | Day surgery (SDC) | payer MEDICARE, SELFPAY ==
[2021-05-11] VITALS (9 sets, daily range): BP systolic 125–140; BP diastolic 78–108; PULSE 63–79; RESP 16; TEMP 21.7–36.6; O2SAT 96–100; BMI 37.3
[2021-05-11] MEDS: Lactated Ringers 1,000 ML 125 ML IV (08:56)
[2021-05-11] MEDS: Epinephrine (1 mg/ml) 1 MG/ML VIAL (12:02)
--- NOTE | 2021-05-11 12:09 | OP.PCM_ITS ---
Report of Operation Date of Procedure: 05/11/21 Pre-Operative Diagnosis: Left knee medial meniscus tear Post-Operative Diagnosis: Left knee medial meniscus tear Surgery/Procedure Performed:: Left knee arthroscopic partial medial meniscectomy Description of Surgical Findings:: Complex posterior horn medial meniscus tear. 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 Surgeon: Rico Kiser medical services assistant: None Type of Anesthesia: General Anesthesiologist: Rafa Taylor Special Medications: Clindamycin Estimated Blood Loss (mL): 10 Fluids Replaced: 1200 mL crystalloid Description of Procedure: On the date of the procedure, the patient's L lower extremity was marked in the preoperative area. Patient was brought back to the operating room where they were transferred to the bed. Anesthesia assumed control of the C-spine airway and administered anesthetic. All bony prominences were identified and well-padded and the L leg was placed in the arthroscopic leg matute. The contralateral leg was then draped over the bed and well-padded. There was padding underneath both sciatic nerves. The foot of the bed was then dropped and the L leg was prepped in a sterile fashion. The surgeon then scrubbed. Upon reentering the room, the operative leg was draped in a standard orthopedic fashion. A timeout was called, everyone agreed upon the side, the site, the procedure to be performed, patient's identity and antibiotics given. Incisions were marked out for the medial and lateral infrapatellar portals. Esmarch bandage was then used to exsanguinate the leg and tourniquet was placed at 250 mmHg. At this time, the lateral portal incision was made in a vertical fashion. The trocar was placed into the joint. The camera was then placed and the patellofemoral joint was visualized. The patella did appear to have grade 2 chondral changes. The trochlea appeared to have minimal chondral changes. We then directed our attention to the medial gutter where there was no foreign bod y. Then directed our attention to the medial joint compartment. There were grade 3 chondral changes on the medial distal femur, grade 3 and 4 chondral changes on the medial tibial plateau. The medial meniscus had complex posterior horn tears. The medial portal was then placed under direct visualization using a spinal needle an 11 blade scalpel. Once this was done a probe was placed in the joint and the meniscus was probed finding the posterior horn and body tears of the medial meniscus. The biters and [place] were then used sequentially to debriding get rid of any free edges that could be a source of pain and catching in the meniscus tear. Once we felt medial meniscus tear was adequately debrided, we again visualized the joint and noted the meniscus tear was adequately debrided. In addition we could see on the far medial edge of the tibial plateau near the edge of the joint surface there was a small area of completely exposed bone consistent with the grade IV chondromalacia. Attention was then turned towards the notch where the anterior cruciate ligament was intact. PCL was visualized and appeared intact. Attention was then directed towards the lateral compartment where the lateral distal femur had minimal chondral changes, the lateral proximal tibia had minimal chondral changes. The lateral meniscus had no appreciable injuries. We then directed our attention to the lateral gutter, which was visualized and no free bodies were noted. At this time the wound was copiously irrigated out with normal saline with epinephrine. The wound was closed with 4-0 nylon and 0.5% Marcaine and epinephrine were injected for local anesthetic. Xeroform was placed over the incision. Sterile dressing was placed. Compressive dressing was placed. Tourniquet was let down. For that there was then placed up. Patient was awakened by anesthesia patient was transferred to the PACU for recovery in stable condition. Postoperative plan: Patient will be made weight-bear as tolerated. Return to activities as tolerated. He will come to the office in 2 weeks for postoperative wound check and suture removal. If he is doing well that time he can follow-up as needed. Aspirin 325 mg daily for DVT prophylaxis Complications NONE Admit VTE Documentation VTE Present on Admission: No VTE Mechan Device Prophylaxis: SCD's and Thigh High MEETA Hose VTE Pharm Prophylaxis ordered?: Yes
[2021-05-11] MEDS: Ketorolac 30 MG/ML Syringe IV (12:44)
== END 2021-05-11 14:24 | disposition home or self-care (01) ==
LOC: SDC 07:58 → AC 07:59
PROVIDERS: PCP Family Medicine Geriatric Medicine; Referring Provider Specialist; Visit Provider Specialist
PROC: (CPT 29870; principal; 2021-05-11 10:25)
DX: S83.242A Other tear of medial meniscus, current injury, left knee, initial encounter (principal); M94.262 Chondromalacia, left knee; M17.12 Unilateral primary osteoarthritis, left knee; F32.A Depression, unspecified; G40.909 Epilepsy, unspecified, not intractable, without status epilepticus; E66.8 Other obesity; Z68.37 Body mass index [BMI] 37.0-37.9, adult; Z79.899 Other long term (current) drug therapy
CPT/HCPCS: 01400; 29881; J7120; J2405

== ENCOUNTER 2021-07-22 15:43 | Outpatient (CLI) | payer MEDICARE, SELFPAY ==
--- NOTE | 2021-07-22 15:49 | CT_ITS ---
EXAM: CT LEFT LOWER EXTREMITY WITHOUT INTRAVENOUS CONTRAST CLINICAL INDICATION: CONTUSION L KNEE TECHNIQUE: Helically acquired images were obtained of the left lower extremity without intravenous contrast. 2-D reformats were performed by the technologist. This CT exam was performed using one or more of the following dose reduction techniques: automated exposure control, adjustment of the mA and/or kV according to patient size, and/or use of iterative reconstruction technique. This report was created using [employer] report [employer] technology. COMPARISON: None. FINDINGS: BONES/JOINTS: The hip joint is within normal limits. Mild subchondral cystic changes in the lateral aspect of the femoral head. No evidence of fracture or dislocation. Limited evaluation of the hip. The intertrochanteric region is not entirely included on this exam. Small sclerotic lesion in the left ischium probably due to bone island. Mild narrowing of the medial joint compartment. No evidence of fracture or dislocation in the region of the knee. No evidence of joint effusion. No demonstrated acute fracture of the ankle. The tibiotalar joint, talocalcaneal and talonavicular joint. Intact. The inferior aspect of the ankle is not entirely included on this exam. The examination is limited. The inferior aspect of the left hip and ankle are not entirely included on this exam. The proximal femoral shaft also is not excluded. SOFT TISSUES: Unremarkable. No soft tissue swelling or gas. No radiopaque foreign body. CT/Extremity Lower without Contra IMPRESSION: 1. No acute findings in the left lower extremity as described above. 2. Mild degenerative arthrosis. 3. Limited examination. Electronically Signed: Emile Britt, at 11:27 EST ,
== END 2021-07-22 23:59 | disposition home or self-care (01) ==
PROVIDERS: PCP Family Medicine Geriatric Medicine; Visit Provider Physician Assistant Surgical
DX: S80.02XA Contusion of left knee, initial encounter (principal)
CPT/HCPCS: 73700

== ENCOUNTER → 2022-06-02 | Outpatient (CLI) | payer MEDICARE, MEDICAID, SELFPAY ==
--- NOTE | 2022-06-02 10:00 | RAD_ITS ---
INDICATION: CHRONIC DIARRHEA EXAMINATION/TECHNIQUE: X-RAY - XR Abdomen 1 View COMPARISON: None FINDINGS: BOWEL GAS PATTERN: Non-obstructive. No bowel or stomach distention. FREE AIR: Not assessed on a single supine view. ORGANOMEGALY: Not seen. CALCIFICATIONS: No abnormal calcifications observed. LOWER CHEST: No acute pathology. BONES AND SOFT TISSUES: No acute pathology. RAD/Abdomen Single View IMPRESSION: Non-obstructive bowel gas pattern. Electronically Signed: Genaro Ernandez MD at 17:57 EST ,
[2022-06-02 13:12] LABS: Absolute Lymphocyte Count 1.98 X10^3/uL (0.83-4.51); Absolute Neutrophil Count 2.9 X10^3/uL (2.0-7.7); Basophil# 0.04 X10^3/uL; Basophil% 0.7 % (0-1); Eosinophil# 0.08 X10^3/uL; Eosinophils% 1.5 % (0-5); Hematocrit 44.1 % (40-54); Hemoglobin 14.8 g/dL (13.0-16.5); Lymphocyte # 1.98 X10^3/ul (0.83-4.51); Lymphocyte % 36.9 % (19-41); Mean Corp Hgb Conc 33.6 g/dL (32-36); Mean Corpuscular Volume 83.4 fL (80-94); Mean Platelet Vol. 10.1 fl (6.2-12.0); Monocyte# 0.39 X10^3/uL; Monocyte% 7.3 % (0-10); NRBC Flagged by Analyzer 0 % (0-5); Neutrophil # 2.86 X10^3/uL (2.7-7.7); Neutrophil % 53.2 % (47-70); Platelet Count 171 K/mm3 (150-450); RBC Distribution Width CV 14.5 % (11.6-14.6); RBC Distribution Width SD 43.6 fl (35.1-43.9); Red Blood Count 5.29 M/mm3 (4.6-6.2); White Blood Count 5.4 K/mm3 (4.4-11.0)
[2022-06-02 13:44] LABS: ALB/GLOB Ratio 1.2 RATIO (0.9-2.4); AST(SGOT) 7 U/L (15-37); Alanine Aminotransfer ALT/SGPT 19 U/L (16-61); Albumin, Serum 3.6 g/dL (3.2-5.0); Alkaline Phosphatase 94 U/L (45-117); Anion Gap 8 (5-15); BUN 14 mg/dL (7-18); BUN/Creat Ratio 17.3 RATIO (10-20); Calcium,Total 8.7 mg/dL (8.5-10.1); Chloride 109 mmol/L (98-107); Cholesterol 185 mg/dL (200); Creatinine, Serum 0.81 mg/dL (0.70-1.30); EST Glomerular Filtration Rate 106 mL/min (>60); Est Glom Filt Rate - Afr Amer 129 mL/min (>60); Glucose 91 mg/dL (74-106); High Density Lipoprotein 53 mg/dL; Potassium 4.2 mmol/L (3.5-5.1); Protein, Total 6.6 g/dL (6.4-8.2); Sodium Level 142 mmol/L (136-145); Thyroid Stim Hormone (TSH) 3.11 uIU/mL (0.358-3.74); Triglycerides 181 mg/dL; Very Low Density Lipoprotein 36 mg/dL (5-40)
== END | disposition home or self-care (01) ==
PROVIDERS: PCP Family Medicine Geriatric Medicine; Visit Provider Family Medicine Geriatric Medicine
DX: K52.9 Noninfective gastroenteritis and colitis, unspecified (principal); E78.5 Hyperlipidemia, unspecified; R53.83 Other fatigue; R19.7 Diarrhea, unspecified
CPT/HCPCS: 36415; 74018; 80053; 80061; 82274; 83630; 84443; 85025; 87177; 87209; 87493; 87506

== ENCOUNTER 2022-07-10 21:27 | Emergency (ER) | payer MEDICARE, MEDICAID, SELFPAY ==
[2022-07-10 21:28] VITALS: BP 174/109; PULSE 80; RESP 16; TEMP 36.1; O2SAT 96; BMI 34.5
[2022-07-10 22:15] VITALS: BP 141/92; PULSE 77; RESP 17; O2SAT 94
--- NOTE | 2022-07-10 22:22 | EDS_ITS ---
HPI History of Present Illness Chief Complaint: Shortness of Breath Narrative Narrative: 51-year-old male presenting with shortness of breath. He states that 2 days ago he was cleaning his house and he decided to mix bleach, vinegar, baking soda. He states as a gut cleaner it worked very well but it made his eyes watery. He now feels short of breath. He is coughing a little bit. His throat feels itchy. Patient is a non-smoker. He has not had fever or chills. No body aches or myal gias. He is not having chest pain. [facility] Medical History Arthritis Depression History of edema History of pain when walking History of steroid therapy Hx of arterial ischemic stroke Hx of fracture of wrist Injury of back Loss of consciousness Non-smoker Seizure disorder Seizures Home Medications citalopram 10 mg tablet (Celexa) 20 mg PO QHS 01/13/14 [History Last Taken 08/08/15] phenytoin sodium extended 100 mg capsule 200 mg PO BREAKFAST ##60 03/08/14 [Rx Last Taken 05/11/21 06:00] phenytoin sodium extended 100 mg capsule 300 mg PO QHS 03/26/14 [History Last Taken 08/07/15] divalproex 500 mg tablet,delayed release (Depakote) 2,000 mg PO BID 05/05/14 [History Last Taken 05/11/21 06:00] cyanocobalamin (vitamin B-12) 500 mcg tablet 500 mcg PO DAILY@0800 07/28/20 [History Last Taken Unknown] baclofen 10 mg tablet 10 mg PO QHS 02/08/21 [History Last Taken Unknown] hydrocodone-acetaminophen 5-325mg 5mg-325mg 1 tab PO Q6H PRN pain 3 days #10 tabs 02/08/21 [Rx Last Taken Unknown] naproxen 500 mg tablet 500 mg PO BID 02/08/21 [History Last Taken Unknown] doxycycline hyclate 100 mg capsule 100 mg PO DAILY #14 caps 07/11/22 [Rx Last Taken Unknown] prednisone 10 mg tablet 50 mg PO DAILY 4 days #20 tabs 07/11/22 [Rx Last Taken Unknown] Allergy/AdvReac Type Severity Reaction Status Date / Time diazepam [From Valium] Allergy Other Verified 05/11/21 08:44 Penicillins AdvReac Rash Verified 05/11/21 08:44 Surgical History Hx of cornea transplant Hx of elbow surgery Hx of hand surgery Hx of right knee surgery Social History Smoking Status: Never smoker ROS ROS ED Constitutional Constitutional ED: Denies chills, fever(s) or sweats Eyes Eyes: Denies blurry vision or change in vision ENT ENT ED: Denies ear pain or sore throat Cardiovascular Cardiovascular: Denies chest pain, palpitations or racing heartbeat Respiratory/Chest Respiratory/Chest: Reports cough and dyspnea; Denies sputum Gastrointestinal Gastrointestinal: Denies abdominal pain, constipation, diarrhea, nausea or vomiting Genitourinary Genitourinary ED: Denies dysuria, hematuria or urinary frequency Musculoskeletal Musculoskeletal: Denies arthralgias, myalgias or neck pain Integumentary Denies abscess, Abrasions or rash Neurologic Neurologic: Denies headache(s), paresthesias or weakness Psychiatric Psychiatric: Denies anxiety, depression, suicidal ideation or suicidal thoughts Endocrine Endocrinology: Denies polydipsia or polyuria EXAM Physical Exam Const Vital Signs: 07/10/22 21:28 07/10/22 22:15 07/10/22 22:15 Temperature 97.0 F L Temperature Source Temporal Pulse Rate 80 77 Respiratory Rate 16 17 Respiratory Effort Normal Non-Labored Respiratory Depth Normal Respiratory Pattern Normal Blood Pressure 174/109 H 141/92 H Blood Pressure Mean 130 108 Pulse Ox 96 94 Oxygen Delivery Method Room Air Room Air Room Air 07/10/22 22:29 07/10/22 22:29 Temperature Temperature Source Pulse Rate 71 Respiratory Rate 18 20 H Respiratory Effort Normal Non-Labored Short of Breath Respiratory Depth Shallow Respiratory Pattern Normal Normal Blood Pressure Blood Pressure Mean Pulse Ox 94 Oxygen Delivery Method Room Air General Appearance ED: Negative for pallor HEENT Reports normocephalic, head/scalp atraumatic and moist mucous membranes Eyes PERRL and EOMs intact bilaterally Neck no lymphadenopathy and supple Chest Wall inspection of chest normal and palpation of chest normal Resp normal respiratory effort Auscultation: wheezes expiratory wheezes Cardio regular rate and regular rhythm GI normal to inspection, nondistended, normoactive bowel sounds and non-distended Auscultation: normoactive bowel sounds Palpation: soft Narrative: Deferred Extremity normal to inspection General Extremety ED: Negative for edema or tenderness General Extremity: Negative for edema Neuro oriented x3 and CN's II-XII intact bilaterally Sensorium / Orientation: alert Motor Exam: strength 5/5 throughout Psych mental status grossly normal Attitude: No agitated Skin no rashes or lesions noted and no wounds General Skin Exam: Negative for jaundice or pallor MDM MDM MDM Narrative Medical decision making narrative: Patient presenting after exposure to combination of bleach, baking soda, vinegar which used to clean his house. Is been a couple of days. He still feeling short of breath. On examination he is wheezing. IV was established was given Solu-Medrol 125. Was also given breathing treatments. Will obtain a chest x- ray as well. No suspicion for viral etiology so not testing him this today. Most likely this is reactive airway secondary to inhalation the above ingredients. Chest x-ray does show possible infiltrate at the lung bases. This is on my interpretation. Radiology interpreted this and agrees. Patient is feeling better after breathing treatments and Solu-Medrol. I will put him on an albuterol inhaler with a burst of prednisone. I will cover him with doxycycline as well. Patient amenable to this course. Return precautions were discussed. Impression: 1. Pneumonia 2. Acute bronchitis Lab Data Attestation: I reviewed the patient's lab results. Radiography Diagnostic Testing: Clinical Impression(s) from Imaging Studies Chest X-Ray 07/10/22 23:00 IMPRESSION: Atelectasis versus infiltrate at the lung bases. Electronically Signed: Nomi Matias DO at 23:10 EST Reading Location ID and State: [address] [place] [address] Tel [phone], Service support , Discharge Plan Triage Chief Complaint: Shortness of Breath Other Complaint: Chest Pain Dizziness ED Provider: Joseph Mckoy Dx/Rx/DC Orders Instructions: Acute Bronchitis, ED Pneumonia (Adult) Prescriptions: New doxycycline hyclate 100 mg capsule 100 mg PO DAILY Qty: 14 0RF prednisone 10 mg tablet 50 mg PO DAILY 4 Days Qty: 20 0RF No Action citalopram [Celexa] 10 MG tablet 20 mg PO QHS Label Comments: anti-depressant phenytoin sodium extended 100 MG capsule 200 mg PO BREAKFAST Qty: 60 0RF Label Comments: for seizures phenytoin sodium extended 100 MG capsule 300 mg PO QHS Label Comments: seizures divalproex [Depakote] 500 MG tablet,delayed release (DR/EC) 2,000 mg PO BID Label Comments: seizure medication cyanocobalamin (vitamin B-12) 500 MCG tablet 500 mcg PO DAILY@0800 baclofen 10 mg Tablet 10 mg PO QHS naproxen 500 mg Tablet 500 mg PO BID hydrocodone-acetaminophen 5-325 mg tablet 1 tab PO Q6H PRN (Reason: pain) 3 Days Qty: 10 0RF Primary Care Provider: Watson Chapman Chi Referrals: Watson Chapman Chi, MD [Primary Care Provider] - Disposition Disposition: Home, Self Care
[2022-07-10 22:29] VITALS: PULSE 71; RESP 18; RESP 20; O2SAT 94
[2022-07-10] MEDS: Ipratropium/Albuterol Sulfate 3 ML AMPUL.NEB INHALATION (22:29)
[2022-07-10] MEDS: Albuterol 2.5 MG/3 ML VIAL.NEB. INHALATION (22:29)
[2022-07-10] MEDS: MethylPREDNISolone 125 MG/2 ML Vial IV (22:35)
--- NOTE | 2022-07-10 22:50 | CPS ---
x1 Albuterol given to ER as well
--- NOTE | 2022-07-10 23:00 | RAD_ITS ---
STUDY: X-RAY CHEST REASON FOR EXAM: Male, 51 years old. Cough. Inhaled cleaning chemical fumes while cleaning. TECHNIQUE: Single AP portable view of the chest. COMPARISON: Chest with RIBS, July 28, 2020 FINDINGS: Limited inspiratory effort. There is minimal interstitial changes at the lung bases which may be atelectatic or infiltrative. There is no demonstrated pleural abnormality. Normal size heart. Normal mediastinum and jameson. Normal visualized pulmonary arteries. Normal visualized aortic arch and descending thoracic aorta. Normal visualized thoracic spine. Normal visualized ribs, clavicles, and shoulders. There is no demonstrated abnormality of the visualized soft tissue structures of the upper abdomen. RAD/Chest 1 View (Portable) IMPRESSION: Atelectasis versus infiltrate at the lung bases. Electronically Signed: Nomi Matias DO at 23:10 [facility] ,
[2022-07-11] MEDS: Doxycycline 100 MG CAPSULE PO (00:33)
[2022-07-11] MEDS: Albuterol Sulfate 8 gm Inhaler (60 puffs) 2 PUFF INHALATION (00:33)
[2022-07-11 00:37] VITALS: BP 139/89; PULSE 76; RESP 14; O2SAT 95
== END 2022-07-11 00:37 | disposition home or self-care (01) ==
PROVIDERS: Emergency Provider Student in an Organized Health Care Education/Training Program; PCP Family Medicine Geriatric Medicine; Visit Provider Student in an Organized Health Care Education/Training Program
DX: J18.9 Pneumonia, unspecified organism (principal); J20.9 Acute bronchitis, unspecified; R42 Dizziness and giddiness; Z79.52 Long term (current) use of systemic steroids
CPT/HCPCS: 71045; 94640; 96374; 99252; 99284; A4216; G0463

== ENCOUNTER → 2022-09-18 | Outpatient (CLI) | payer MEDICARE, MEDICAID, SELFPAY ==
[2022-09-18 18:28] LABS: CRP < 2.90 mg/L (0.0-3.0)
[2022-09-20 15:08] LABS: Endomysial Antibody IgA Negative (Negative); Immunoglobulin A 108 mg/dL (90-386); t-Transglutaminase IgA <2 U/mL (0-3)
[2022-09-21 18:07] LABS: Fats, Neutral Normal (.); Fats, Total Increased (.)
== END | disposition home or self-care (01) ==
LOC: MTLAB 16:12
PROVIDERS: PCP Family Medicine Geriatric Medicine; Referring Provider Internal Medicine Gastroenterology; Visit Provider Internal Medicine Gastroenterology
DX: R19.7 Diarrhea, unspecified (principal)
CPT/HCPCS: 36415; 82274; 82705; 82784; 83516; 86140; 86255

== ENCOUNTER 2023-01-10 16:29 | Emergency (ER) | payer MEDICARE, MEDICAID, SELFPAY ==
[2023-01-10 16:33] VITALS: BP 151/96; PULSE 65; RESP 18; TEMP 36.6; O2SAT 100
--- NOTE | 2023-01-10 16:49 | CT_ITS ---
STUDY: CT BRAIN WITHOUT CONTRAST REASON FOR EXAM: Male, 52 years old. trauma RADIATION DOSAGE (If Supplied By Facility): CTDIvol = ( 44.99 ) mGy, DLP = ( 846.73 ) mGycm TECHNIQUE: Transaxial CT imaging of the brain was performed without administration of intravenous contrast material. Individualized dose optimization techniques were used for this CT. COMPARISON: 09/11/2014. FINDINGS: Normal soft tissue structures. Normal calvarium. Normal size ventricles and extra-axial spaces for the patient''s age. Normal white matter tracts of the cerebral hemispheres. Normal basal ganglia and thalami. Normal brainstem. Normal cerebellum. There is no intracranial hemorrhage. There are no findings of an acute ischemic infarction. Mild mucosal thickening in the maxillary sinuses. CT/Brain/Head without Contrast IMPRESSION: No acute findings. Trace chronic sinusitis. Electronically Signed: Karishma Forte MD at 17:34 EDT Reading Location ID and State: [id number] / Tel , Service support ,
--- NOTE | 2023-01-10 16:49 | CT_ITS ---
INDICATION: trauma EXAMINATION: CT CERVICAL SPINE - CT Spine Cervical W/O Contrast Injection TECHNIQUE: Helically acquired images were obtained of the cervical spine. 2D reformatted images were reviewed. A radiation dose optimization technique was used for this scan. IV Contrast dosage and agent: None. RADIATION DOSAGE (If Supplied By Facility): CTDIvol = ( 23.67 ) mGy, DLP = ( 456.68 ) mGycm COMPARISON: FINDINGS: VERTEBRAE: No fracture or traumatic subluxation. No discrete lytic or blastic abnormality. Normal alignment. Normal craniocervical junction and cervicothoracic junction. DISCS and SPINAL CANAL: Disc heights are preserved. No critical stenosis. C3-4: Small central disc protrusion. C6-7: Disc space narrowing. Moderate foraminal stenosis due to uncinate hypertrophy. NECK SOFT TISSUES: No prevertebral soft tissue swelling. There is no cervical adenopathy. LUNG APICES: Clear. CT/Spine Cervical without Contras IMPRESSION: No evidence of acute cervical trauma. Small C3-4 disc protrusion. Electronically Signed: Karishma Forte MD at 17:41 EDT Reading Location ID and State: [id number] / Tel , Service support ,
--- NOTE | 2023-01-10 16:49 | CT_ITS ---
EXAM: CT CHEST WITHOUT INTRAVENOUS CONTRAST CLINICAL INDICATION: trauma TECHNIQUE: Helically acquired images were obtained of the chest without intravenous contrast. This CT exam was performed using one or more of the following dose reduction techniques: automated exposure control, adjustment of the mA and/or kV according to patient size, and/or use of iterative reconstruction technique. COMPARISON: No relevant prior studies available. FINDINGS: LUNGS AND PLEURAL SPACES: Mild bibasilar atelectasis. Lung somers are otherwise clear. No mass. No pleural effusion or thickening. No pneumothorax. HEART: Unremarkable. Heart size is normal. No pericardial effusion. No significant coronary artery calcifications. MEDIASTINUM: Unremarkable. No mediastinal or hilar adenopathy. Esophagus is unremarkable. No hiatal hernia. THYROID: Unremarkable. No thyroid lesions. BONES/JOINTS: Multiple chronic thoracic compression fractures. Chronic healed right clavicle fracture. Right shoulder osteoarthrosis with loose bodies. Prior internal fixation of the left humerus. No suspicious lytic or blastic abnormality. VASCULATURE: Unremarkable. Thoracic aorta is non-dilated. CT/Chest without Contrast IMPRESSION: Mild bibasilar atelectasis, otherwise no acute findings. Electronically Signed: Karishma Forte MD at 17:57 EDT Reading Location ID and State: [id number] / Tel , Service support ,
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
[2023-01-10 16:58] VITALS: BMI 21.9
[2023-01-10] MEDS: HYDROcodone Bitartrate/Apap 5/325 Tablet PO (17:46)
[2023-01-10 18:41] VITALS: RESP 16
== END 2023-01-10 18:41 | disposition home or self-care (01) ==
PROVIDERS: Emergency Provider Emergency Medicine; PCP Family Medicine Geriatric Medicine; Visit Provider Emergency Medicine
DX: S09.90XA Unspecified injury of head, initial encounter (principal); S16.1XXA Strain of muscle, fascia and tendon at neck level, initial encounter; S20.20XA Contusion of thorax, unspecified, initial encounter; V43.54XA Car driver injured in collision with van in traffic accident, initial encounter
CPT/HCPCS: 70450; 71250; 72125; 99284

== ENCOUNTER 2023-02-16 18:23 | Emergency (ER) | payer MEDICARE, MEDICAID, SELFPAY ==
[2023-02-16 18:24] VITALS: BP 136/97; PULSE 71; RESP 18; TEMP 36.2; O2SAT 100; BMI 34.2
[2023-02-16] MEDS: Tetracaine 0.5% Ophthalmic Bottle 1 DRP LEFT EYE (18:47)
[2023-02-16] MEDS: Fluorescein 1 MG STRIP 1 STRIP LEFT EYE (18:47)
--- NOTE | 2023-02-16 19:14 | EX.ED.VIS.EY ---
HPI History of Present Illness Chief Complaint: Eye Problem Narrative Narrative: 52-year-old male presenting with left eye pain. He states he was walking his dog and felt something go into his eye. He is not sure if it was a bug or something else. He states that his eye is painful and watering. He describes his eyes red now. Patient is a noncontact wearer. 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 [facility] Medical History Arthritis Depression History of edema History of pain when walking History of steroid therapy Hx of arterial ischemic stroke Hx of fracture of wrist Injury of back Loss of consciousness Non-smoker Seizure disorder Seizures Home Medications citalopram 10 mg tablet (Celexa) 20 mg PO QHS 01/13/14 [History Last Taken 08/08/15] phenytoin sodium extended 100 mg capsule 200 mg (2 x 100 mg) PO BREAKFAST ##60 03/08/14 [Rx Last Taken 05/11/21 06:00] phenytoin sodium extended 100 mg capsule 300 mg PO QHS 03/26/14 [History Last Taken 08/07/15] divalproex 500 mg tablet,delayed release (Depakote) 2,000 mg PO BID 05/05/14 [History Last Taken 05/11/21 06:00] cyanocobalamin (vitamin B-12) 500 mcg tablet 500 mcg PO DAILY@0800 07/28/20 [History Last Taken Unknown] doxycycline hyclate 100 mg capsule 100 mg PO DAILY #14 caps 07/11/22 [Rx Last Taken Unknown] acyclovir 400 mg tablet 400 mg PO Q12H 01/10/23 [History Last Taken Unknown] hydrocodone-acetaminophen 5-325mg 5mg-325mg 1 tab PO Q6H PRN PRN Pain 3 days #10 TABLETS 01/10/23 [Rx Last Taken Unknown] erythromycin 5 mg/gram (0.5 %) eye ointment 1 applic LEFT EYE Q6H #3.5 grams 02/16/23 [Rx Last Taken Unknown] Allergy/AdvReac Type Severity Reaction Status Date / Time diazepam [From Valium] Allergy Other Verified 01/10/23 16:36 Penicillins AdvReac Rash Verified 01/10/23 16:36 Surgical History Hx of cornea transplant Hx of elbow surgery Hx of hand surgery Hx of right knee surgery Social History household members: family housing: house Smoking Status: Never smoker ROS ROS ED Constitutional Constitutional ED: Denies chills or fever(s) Eyes Eyes: Reports blurry vision left and other Details: Left I pain ENT ENT ED: Denies rhinorrhea or sore throat Cardiovascular Cardiovascular: Denies chest pain or palpitations Respiratory/Chest Respiratory/Chest: Denies cough or dyspnea Gastrointestinal Gastrointestinal: Denies abdominal pain, nausea or vomiting Genitourinary Genitourinary ED: Denies dysuria Musculoskeletal Musculoskeletal: Denies arthralgias Integumentary Denies abscess or Abrasions Neurologic Neurologic: Denies headache(s) Psychiatric Psychiatric: Denies anxiety or depression EXAM Physical Exam Const Vital Signs: 02/16/23 18:24 Temperature 97.2 F L Temperature Source Temporal Pulse Rate 71 Respiratory Rate 18 Blood Pressure 136/97 H Blood Pressure Mean 110 Pulse Ox 100 Oxygen Delivery Method Room Air Positive well nourished General Appearance ED: NAD HEENT atraumatic Eyes PERRL and EOMs intact bilaterally Alignment: alignment normal Periorbital: periorbital findings normal Eyelid: eyelids normal Conjunctiva: conjunctiva abnormal left Details: injection Cornea: cornea abnormal Pupil: PERRL Slit Lamp: lids/lashes/lacrimal system normal appearing and conjunctiva/sclera diffuse conjunctiva injection Neck no lymphadenopathy and supple Resp normal respiratory effort Neuro oriented x3 and CN's II-XII intact bilaterally Sensorium / Orientation: alert Skin no wounds MDM MDM MDM Narrative Medical decision making narrative: Patient presenting with left eye pain. He feels like something hit him in the eye while he was walking. On his eye exam I do not see any foreign bodies under the eyelids. Lids and lashes appear normal. Tetracaine and fluorescein were given left eye. There is diffuse scleral injection without any evidence of corneal abrasion. I did flush under the eyelids both upper and lower notes any foreign bodies. I will place the patient on erythromycin ophthalmic 4 times a day. He has an barrel repairer that he sees for his corneal transplants. I recommend he make a follow-up with this doctor. Precautions were discussed. Impression: 1. Foreign body sensation left eye Discharge Plan Triage Chief Complaint: Eye Problem ED Provider: Joseph Mckoy Dx/Rx/DC Orders Instructions: ED Corneal Foreign Body, Removed Prescriptions: New erythromycin 5 mg/gram (0.5 %) ointment 1 applic LEFT EYE Q6H Qty: 3.5 0RF No Action citalopram [Celexa] 10 MG tablet 20 mg PO QHS Patient Comments: anti-depressant phenytoin sodium extended 100 MG capsule 200 mg PO BREAKFAST Qty: 60 0RF Patient Comments: for seizures phenytoin sodium extended 100 MG capsule 300 mg PO QHS Patient Comments: seizures divalproex [Depakote] 500 MG tablet,delayed release (DR/EC) 2,000 mg PO BID Patient Comments: seizure medication cyanocobalamin (vitamin B-12) 500 MCG tablet 500 mcg PO DAILY@0800 doxycycline hyclate 100 mg capsule 100 mg PO DAILY Qty: 14 0RF acyclovir 400 mg tablet 400 mg PO Q12H Patient Comments: TAKE 1 TABLET BY MOUTH TWICE DAILY hydrocodone-acetaminophen 5-325 mg tablet 1 tab PO Q6H PRN PRN (Reason: Pain) 3 Days Qty: 10 0RF Primary Care Provider: Watson Chapman Chi Referrals: Watson Chapman Chi, MD [Primary Care Provider] - Disposition Disposition: Home, Self Care
[2023-02-16] MEDS: Erythromycin Base 1 OPTH.TUBE 1 APPLIC LEFT EYE (19:31)
[2023-02-16 19:35] VITALS: BP 135/96; PULSE 65; RESP 18; O2SAT 94
== END 2023-02-16 19:38 | disposition home or self-care (01) ==
LOC: ED 19:19
PROVIDERS: Emergency Provider Student in an Organized Health Care Education/Training Program; PCP Family Medicine Geriatric Medicine; Visit Provider Student in an Organized Health Care Education/Training Program
DX: T15.92XA Foreign body on external eye, part unspecified, left eye, initial encounter (principal); Z94.7 Corneal transplant status; W22.8XXA Striking against or struck by other objects, initial encounter; Y93.K1 Activity, walking an animal
CPT/HCPCS: 99282; A4216

== ENCOUNTER → 2023-02-22 | Outpatient (CLI) | payer MEDICARE, MEDICAID, SELFPAY ==
[2023-02-22 14:43] LABS: Phenytoin (Dilantin) Level 5.7 mL (10.0-20.0); Valproic Acid (Depakene) Level 102 ug/mL (50-100)
== END | disposition home or self-care (01) ==
PROVIDERS: PCP Family Medicine Geriatric Medicine; Visit Provider Family Medicine Geriatric Medicine
DX: G40.909 Epilepsy, unspecified, not intractable, without status epilepticus (principal)
CPT/HCPCS: 36415; 80164; 80185

== ENCOUNTER → 2023-03-08 | Outpatient (CLI) | payer MEDICARE, MEDICAID, SELFPAY ==
--- NOTE | 2023-03-08 15:29 | BD_ITS ---
STUDY: DUAL ENERGY X-RAY ABSORPTIOMETRY / DXA REASON FOR EXAM: Male, 52 years old. M85.89 TECHNIQUE: Bone Mineral Density (BMD) measurements of lumbar spine and bilateral hips were obtained. COMPARISON: None. FINDINGS: Lumbar Spine (L1-L4): g/cm2 (0.714) / T-score (-3.5) / Z-score (-3.0) Findings are suggestive of osteoporosis with a high fracture risk. Left Femur Total: g/cm2 (0.892) / T-score (-0.9) / Z-score (-0.6) Left Femoral Neck: g/cm2 (0.662) / T-score (-2.0) / Z-score (-1.1) Right Femur Total: g/cm2 (0.855) / T-score (-1.2) / Z-score (-0.8) Right Femoral Neck: g/cm2 (0.623) / T-score (-2.3) / Z-score (-1.4) BD/Dexa Bone Density Study IMPRESSION: The patient is considered osteoporotic as outlined below according to World [employer] Organization (WHO) criteria with a high fracture risk. Reference Information: The T-score is the number of standard deviations above or below the standard which is normal for young adults at their peak bone mineral density. The World Health Organization (WHO) interprets the T-scores as follows: Above -1 Normal bone density Between -1 and -2.5 Osteopenia Equal to / or below -2.5 Osteoporosis As a practical clinical guideline, osteopenia may be graded as follows: Mild -1 through -1.5 Moderate -1.6 through -2.0 Severe -2.1 through -2.4 The Z-score is the number of standard deviations above or below age-matched controls. A Z-score of less than -1.5 would be considered abnormal. References: 1. NIH Osteoporosis and Related Bone Diseases www osteo.org 2. International Society for Clinical Densitometry www iscd.org 3. National Osteoporosis Foundation www nof.org Electronically Signed: Srini Villela MD at 14:49 EDT ,
== END | disposition home or self-care (01) ==
LOC: OPBD 15:24
PROVIDERS: PCP Family Medicine Geriatric Medicine; Referring Provider Family Medicine Geriatric Medicine; Visit Provider Family Medicine Geriatric Medicine
DX: M85.89 Other specified disorders of bone density and structure, multiple sites (principal)
CPT/HCPCS: 77080

== ENCOUNTER → 2023-06-07 | Outpatient (CLI) | payer MEDICARE, MEDICAID, SELFPAY ==
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
[2023-06-07 12:19] LABS: Absolute Lymphocyte Count 2.11 X10^3/uL (0.83-4.51); Absolute Neutrophil Count 2.6 X10^3/uL (2.0-7.7); Basophil# 0.04 X10^3/uL; Basophil% 0.8 % (0-1); Eosinophils% 1.9 % (0-5); Hematocrit 45.9 % (40-54); Hemoglobin 15.1 g/dL (13.0-16.5); Lymphocyte # 2.11 X10^3/ul (0.83-4.51); Lymphocyte % 40.2 % (19-41); Mean Corp Hgb Conc 32.9 g/dL (32-36); Mean Corpuscular Hgb 28.5 pg (27.0-32.0); Mean Corpuscular Volume 86.6 fL (80-94); Monocyte# 0.34 X10^3/uL; Monocyte% 6.5 % (0-10); NRBC Flagged by Analyzer 0 % (0-5); Neutrophil # 2.61 X10^3/uL (2.7-7.7); Neutrophil % 49.6 % (47-70); Platelet Count 174 K/mm3 (150-450); RBC Distribution Width CV 13.2 % (11.6-14.6); RBC Distribution Width SD 41.4 fl (35.1-43.9); White Blood Count 5.3 K/mm3 (4.4-11.0)
[2023-06-07 13:18] LABS: ALB/GLOB Ratio 1.4 RATIO (0.9-2.4); AST(SGOT) 8 U/L (15-37); Alanine Aminotransfer ALT/SGPT 16 U/L (16-61); Albumin, Serum 3.8 g/dL (3.2-5.0); Alkaline Phosphatase 94 U/L (45-117); Anion Gap 6 (5-15); BUN 13 mg/dL (7-18); BUN/Creat Ratio 15.7 RATIO (10-20); Calcium,Total 9.2 mg/dL (8.5-10.1); Chloride 107 mmol/L (98-107); Cholesterol 180 mg/dL (200); Creatinine, Serum 0.83 mg/dL (0.70-1.30); EST Glomerular Filtration Rate 103 mL/min (>60); Est Glom Filt Rate - Afr Amer 124 mL/min (>60); Globulin 2.8 g/dL (2.2-4.2); Glucose 92 mg/dL (74-106); High Density Lipoprotein 56 mg/dL; Potassium 4.3 mmol/L (3.5-5.1); Protein, Total 6.6 g/dL (6.4-8.2); Sodium Level 141 mmol/L (136-145); Triglycerides 192 mg/dL; Very Low Density Lipoprotein 38 mg/dL (5-40)
== END | disposition home or self-care (01) ==
PROVIDERS: PCP Family Medicine Geriatric Medicine; Visit Provider Family Medicine Geriatric Medicine
DX: R53.83 Other fatigue (principal); E78.5 Hyperlipidemia, unspecified
CPT/HCPCS: 36415; 80053; 80061; 84443; 85025

== ENCOUNTER → 2023-10-08 | Outpatient (CLI) | payer MEDICARE, MEDICAID, SELFPAY ==
[2023-10-08 10:28] LABS: Absolute Lymphocyte Count 2.35 X10^3/uL (0.83-4.51); Absolute Neutrophil Count 2.3 X10^3/uL (2.0-7.7); Basophil# 0.04 X10^3/uL; Basophil% 0.8 % (0-1); Eosinophil# 0.14 X10^3/uL; Eosinophils% 2.6 % (0-5); Hematocrit 45.9 % (40-54); Hemoglobin 15.3 g/dL (13.0-16.5); Lymphocyte # 2.35 X10^3/ul (0.83-4.51); Lymphocyte % 44.3 % (19-41); Mean Corp Hgb Conc 33.3 g/dL (32-36); Mean Corpuscular Hgb 28.6 pg (27.0-32.0); Mean Corpuscular Volume 85.8 fL (80-94); Mean Platelet Vol. 9.7 fl (6.2-12.0); Monocyte% 7.5 % (0-10); NRBC Flagged by Analyzer 0 % (0-5); Neutrophil # 2.31 X10^3/uL (2.7-7.7); Neutrophil % 43.5 % (47-70); Platelet Count 169 K/mm3 (150-450); RBC Distribution Width CV 13.2 % (11.6-14.6); RBC Distribution Width SD 41.1 fl (35.1-43.9); Red Blood Count 5.35 M/mm3 (4.6-6.2); White Blood Count 5.3 K/mm3 (4.4-11.0)
[2023-10-08 11:04] LABS: Phenytoin (Dilantin) Level 8.8 mL (10.0-20.0); Valproic Acid (Depakene) Level 130 ug/mL (50-100)
[2023-10-08 11:06] LABS: Vitamin D,25 Hydroxy 26.5 ng/mL
[2023-10-08 11:16] LABS: AST(SGOT) 10 U/L (15-37); Alanine Aminotransfer ALT/SGPT 23 U/L (16-61); Albumin, Serum 3.7 g/dL (3.2-5.0); Alkaline Phosphatase 98 U/L (45-117); Anion Gap 4 (5-15); BUN 16 mg/dL (7-18); BUN/Creat Ratio 19.9 RATIO (10-20); Bilirubin, Direct 0.09 mg/dL (0.00-0.30); Calcium,Total 9.1 mg/dL (8.5-10.1); Chloride 107 mmol/L (98-107); EST Glomerular Filtration Rate 106 mL/min (>60); Est Glom Filt Rate - Afr Amer 129 mL/min (>60); GGTP 108 U/L (15-85); Globulin 2.9 g/dL (2.2-4.2); Glucose 108 mg/dL (74-106); Protein, Total 6.6 g/dL (6.4-8.2); Sodium Level 140 mmol/L (136-145); Thyroid Stim Hormone (TSH) 2.06 uIU/mL (0.358-3.74)
== END | disposition home or self-care (01) ==
LOC: LAB 09:39
PROVIDERS: PCP Family Medicine Geriatric Medicine
DX: G40.219 Localization-related (focal) (partial) symptomatic epilepsy and epileptic syndromes with complex partial seizures, intractable, without status epilepticus (principal); E55.9 Vitamin D deficiency, unspecified; E03.9 Hypothyroidism, unspecified; Z79.899 Other long term (current) drug therapy
CPT/HCPCS: 36415; 80048; 80076; 80164; 80185; 82306; 82977; 84443; 85025

== ENCOUNTER → 2023-11-30 | Outpatient (CLI) | payer MEDICARE, MEDICAID, SELFPAY ==
[2023-11-30 11:42] LABS: Absolute Lymphocyte Count 2.77 X10^3/uL (0.83-4.51); Absolute Neutrophil Count 2.9 X10^3/uL (2.0-7.7); Basophil# 0.04 X10^3/uL; Basophil% 0.6 % (0-1); Eosinophil# 0.14 X10^3/uL; Eosinophils% 2.2 % (0-5); Hematocrit 43.5 % (40-54); Hemoglobin 14.6 g/dL (13.0-16.5); Lymphocyte # 2.77 X10^3/ul (0.83-4.51); Lymphocyte % 43.8 % (19-41); Mean Corp Hgb Conc 33.6 g/dL (32-36); Mean Corpuscular Hgb 28.1 pg (27.0-32.0); Mean Corpuscular Volume 83.8 fL (80-94); Mean Platelet Vol. 10.1 fl (6.2-12.0); Monocyte# 0.45 X10^3/uL; Monocyte% 7.1 % (0-10); NRBC Flagged by Analyzer 0 % (0-5); Neutrophil # 2.88 X10^3/uL (2.7-7.7); Neutrophil % 45.5 % (47-70); Platelet Count 169 K/mm3 (150-450); RBC Distribution Width CV 13.2 % (11.6-14.6); RBC Distribution Width SD 39.7 fl (35.1-43.9); Red Blood Count 5.19 M/mm3 (4.6-6.2); White Blood Count 6.3 K/mm3 (4.4-11.0)
[2023-11-30 12:27] LABS: ALB/GLOB Ratio 1.2 RATIO (0.9-2.4); AST(SGOT) 13 U/L (15-37); Alanine Aminotransfer ALT/SGPT 21 U/L (16-61); Albumin, Serum 3.7 g/dL (3.2-5.0); Alkaline Phosphatase 109 U/L (45-117); Anion Gap 8 (5-15); BUN 15 mg/dL (7-18); BUN/Creat Ratio 19.6 RATIO (10-20); Calcium,Total 8.8 mg/dL (8.5-10.1); Chloride 105 mmol/L (98-107); Cholesterol 168 mg/dL (200); Creatinine, Serum 0.77 mg/dL (0.70-1.30); EST Glomerular Filtration Rate 112 mL/min (>60); Est Glom Filt Rate - Afr Amer 136 mL/min (>60); Glucose 109 mg/dL (74-106); High Density Lipoprotein 47 mg/dL; Potassium 4.5 mmol/L (3.5-5.1); Protein, Total 6.7 g/dL (6.4-8.2); Sodium Level 139 mmol/L (136-145); Thyroid Stim Hormone (TSH) 2.22 uIU/mL (0.358-3.74); Triglycerides 283 mg/dL; Very Low Density Lipoprotein 57 mg/dL (5-40)
== END | disposition home or self-care (01) ==
PROVIDERS: PCP Family Medicine Geriatric Medicine; Referring Provider Family Medicine Geriatric Medicine; Visit Provider Family Medicine Geriatric Medicine
DX: R53.83 Other fatigue (principal); E78.5 Hyperlipidemia, unspecified
CPT/HCPCS: 36415; 80053; 80061; 84443; 85025

== ENCOUNTER → 2024-06-09 | Outpatient (CLI) | payer MEDICARE, MEDICAID, SELFPAY ==
[2024-06-09 10:03] LABS: Absolute Lymphocyte Count 2.74 X10^3/uL (0.83-4.51); Absolute Neutrophil Count 3.3 X10^3/uL (2.0-7.7); Basophil# 0.04 X10^3/uL; Basophil% 0.6 % (0-1); Eosinophil# 0.15 X10^3/uL; Eosinophils% 2.2 % (0-5); Hemoglobin 15.9 g/dL (13.0-16.5); Lymphocyte # 2.74 X10^3/ul (0.83-4.51); Lymphocyte % 40.8 % (19-41); Mean Corp Hgb Conc 33.8 g/dL (32-36); Mean Corpuscular Hgb 28.9 pg (27.0-32.0); Mean Corpuscular Volume 85.3 fL (80-94); Mean Platelet Vol. 9.7 fl (6.2-12.0); Monocyte# 0.47 X10^3/uL; NRBC Flagged by Analyzer 0 % (0-5); Neutrophil # 3.27 X10^3/uL (2.7-7.7); Neutrophil % 48.7 % (47-70); Platelet Count 192 K/mm3 (150-450); RBC Distribution Width CV 12.8 % (11.6-14.6); RBC Distribution Width SD 39.2 fl (35.1-43.9); Red Blood Count 5.51 M/mm3 (4.6-6.2); White Blood Count 6.7 K/mm3 (4.4-11.0)
[2024-06-09 10:46] LABS: ALB/GLOB Ratio 1.2 RATIO (0.9-2.4); AST(SGOT) 16 U/L (15-37); Alanine Aminotransfer ALT/SGPT 29 U/L (16-61); Albumin, Serum 3.8 g/dL (3.2-5.0); Alkaline Phosphatase 111 U/L (45-117); Anion Gap 6 (5-15); BUN 13 mg/dL (7-18); BUN/Creat Ratio 16.5 RATIO (10-20); Calcium,Total 9.2 mg/dL (8.5-10.1); Chloride 105 mmol/L (98-107); Cholesterol 205 mg/dL (200); Creatinine, Serum 0.79 mg/dL (0.70-1.30); EST Glomerular Filtration Rate 109 mL/min (>60); Est Glom Filt Rate - Afr Amer 131 mL/min (>60); Globulin 3.3 g/dL (2.2-4.2); Glucose 98 mg/dL (74-106); High Density Lipoprotein 50 mg/dL; PSA,Total - Annual Screen 1.32 ng/mL (0.00-4.00); Potassium 4.4 mmol/L (3.5-5.1); Protein, Total 7.1 g/dL (6.4-8.2); Sodium Level 139 mmol/L (136-145); Triglycerides 425 mg/dL
== END | disposition home or self-care (01) ==
PROVIDERS: PCP Family Medicine Geriatric Medicine; Visit Provider Family Medicine Geriatric Medicine
DX: Z12.5 Encounter for screening for malignant neoplasm of prostate (principal); E78.5 Hyperlipidemia, unspecified; R53.83 Other fatigue
CPT/HCPCS: 36415; 80053; 80061; 84153; 84443; 85025; G0103